=== PATIENT | female | born 1980 | race Caucasian/White ===

== ENCOUNTER 2017-08-31 11:23 | Emergency (ER) | payer OTHER ==
[~2017-08-31] VITALS: Ht 165.1 cm; Wt 68.2 kg
[~2017-08-31 11:23] MED LIST: FLEXERIL10 MG PO; LORTAB 5/500 501 TAB PO; NO HOME MEDICATIONS; PERCOCET 325 MG1 TA2 PO; ZOFRAN ODT4 MG PO
[2017-08-31 11:47] VITALS: TEMP 100.2
[2017-08-31 13:16] LABS: COLLECTION METHOD CLEAN CATCH
[2017-08-31 13:21] LABS: HEMOGLOBIN 12.5 g/dl (12.5-16.0); MEAN CELL VOLUME 101 fl (80.0-100.0); MEAN CORPUSCULAR HEMOGLOBIN 35 pg (27.0-31.0); MEAN CORPUSCULAR HGB CONC 34 g/dl (33.0-37.0); MEAN PLATELET VOLUME 10.2 fl (7.4-10.4); PLATELET COUNT 273 K/mm3 (130-400); RED BLOOD COUNT 3.61 M/mm3 (4.10-5.30); WHITE BLOOD COUNT 16.2 K/mm3 (4.8-10.8)
[2017-08-31 13:22] LABS: ADD PATHOLOGY DIFF REVIEW NO; HEMATOCRIT 36.5 % (37.0-47.0)
[2017-08-31 13:24] LABS: MUCOUS Present /lpf; PH 6 (5-8); SQUAMOUS EPITHELIAL 0-2 /hpf; URINE APPEARANCE Hazy; URINE BACTERIA Rare /hpf; URINE BILIRUBIN Negative (NEGATIVE); URINE BLOOD 2+ (NEGATIVE); URINE COLOR Yellow; URINE GLUCOSE Negative (NEGATIVE); URINE KETONE Negative (NEGATIVE); URINE LEUKOCYTE ESTERASE 3+ (NEGATIVE); URINE PROTEIN(semi-quant) Negative (NEGATIVE); URINE RBC 0-2 /hpf; URINE UROBILINOGEN Negative (NEGATIVE)
[2017-08-31 13:27] LABS: URINE WBC >50 /hpf
[2017-08-31 13:31] LABS: ADJUSTED CALCIUM 8.7 mg/dL (8.4-10.2); ALBUMIN 5.1 gm/dL (3.5-5.0); BILIRUBIN,TOTAL 0.9 mg/dL (0.0-1.0); CALCIUM 9.6 mg/dL (8.4-10.2); CREATININE, serum 0.95 mg/dL (0.52-1.25); POTASSIUM 3.7 mmol/L (3.4-5.0); TOTAL PROTEIN 8.7 gm/dL (6.4-8.2)
[2017-08-31 13:43] LABS: C-REACTIVE PROTEIN 19.9 mg/dL (0.0-0.9)
[2017-08-31 13:48] LABS: BAND 40 % (0-10); EOSINOPHIL 1 % (0-4); LYMPHOCYTE 8 % (20.0-51.0); NEUTROPHILS 44 % (42.0-75.2); PLATELET ESTIMATE NORMAL (NORMAL); TOTAL CELLS COUNTED 100
[2017-08-31] MEDS ORDERED: CIPRO 500MG TA500 MG PO (16:14)
[2017-08-31 16:30] VITALS: BP 112/81; PULSE 81
[2017-09-01] MEDS ORDERED: NORCO 325 MG-51 TAB PO (17:16)
== END 2017-08-31 16:32 | disposition home or self-care (01) ==
LOC: COL.ER 11:23
PROVIDERS: Nurse Practitioner Primary Care
DX: N12 Tubulo-interstitial nephritis, not specified as acute or chronic (principal); F12.10 Cannabis abuse, uncomplicated
CPT/HCPCS: J1170; J2405; J7030

== ENCOUNTER 2017-09-01 13:27 | Emergency (ER) | payer OTHER ==
[~2017-09-01] VITALS: Ht 165.1 cm; Wt 68.2 kg
[~2017-09-01 13:27] MED LIST changes: +CIPRO 500MG TA500 MG PO
[2017-09-01 15:03] LABS: BASO % 0.3 % (0.0-2.0); EOS % 0.1 % (0-4.0); GRAN # 8.5 (1.4-6.5); GRAN % 82.1 % (42.2-75.2); LYMPH # 0.6 (1.2-3.4); LYMPH % 5.6 % (20.0-51.0); MEAN CELL VOLUME 98 fl (80.0-100.0); MEAN CORPUSCULAR HGB CONC 35 g/dl (33.0-37.0); MEAN PLATELET VOLUME 10.4 fl (7.4-10.4); MONO # 1.2 (0.1-0.6); MONO % 11.4 % (1.7-9.3); PLATELET COUNT 246 K/mm3 (130-400); RED BLOOD COUNT 3.11 M/mm3 (4.10-5.30); WHITE BLOOD COUNT 10.3 K/mm3 (4.8-10.8)
[2017-09-01 15:04] LABS: HEMATOCRIT 30.4 % (37.0-47.0); HEMOGLOBIN 10.5 g/dl (12.5-16.0); MEAN CORPUSCULAR HEMOGLOBIN 34 pg (27.0-31.0)
[2017-09-01 15:06] LABS: ALBUMIN 4.1 gm/dL (3.5-5.0); BILIRUBIN,TOTAL 0.6 mg/dL (0.0-1.0); CALCIUM 9.1 mg/dL (8.4-10.2); CREATININE, serum 1.03 mg/dL (0.52-1.25); POTASSIUM 3.5 mmol/L (3.4-5.0); TOTAL PROTEIN 7.5 gm/dL (6.4-8.2)
[2017-09-01 15:19] LABS: INFLUENZA A NEGATIVE; INFLUENZA B NEGATIVE
[2017-09-01 16:19] LABS: COLLECTION METHOD CLEAN CATCH
[2017-09-01 16:28] LABS: PH 6 (5-8); SQUAMOUS EPITHELIAL 0-2 /hpf; URINE APPEARANCE Clear; URINE BACTERIA Rare /hpf; URINE BILIRUBIN Negative (NEGATIVE); URINE BLOOD 2+ (NEGATIVE); URINE COLOR Straw; URINE GLUCOSE Negative (NEGATIVE); URINE KETONE Negative (NEGATIVE); URINE LEUKOCYTE ESTERASE Negative (NEGATIVE); URINE PROTEIN(semi-quant) Negative (NEGATIVE); URINE RBC 0-2 /hpf; URINE UROBILINOGEN Negative (NEGATIVE); URINE WBC 0-2 /hpf
[2017-09-01] MEDS ORDERED: NORCO 325 MG-51 TAB PO (17:16)
[2017-09-02 16:45] VITALS: BP 110/52; PULSE 66; TEMP 97
== END 2017-09-01 17:33 | disposition home or self-care (01) ==
LOC: COL.ER 13:27
PROVIDERS: Emergency Medicine
DX: N10 Acute pyelonephritis (principal)
CPT/HCPCS: J0696; J1170; J1885; J2405; J7030; Q9967

== ENCOUNTER 2018-07-27 06:40 | Emergency (ER) | payer OTHER ==
[~2018-07-27] VITALS: Ht 165.1 cm; Wt 72.7 kg
[~2018-07-27 06:40] MED LIST changes: +NORCO 325 MG-51 TAB PO; +PREDNISONE20 MG PO
[2018-07-27 06:45] VITALS: TEMP 97.8
[2018-07-27 07:23] LABS: BASO % 0.3 % (0.0-2.0); GRAN # 10.2 (1.4-6.5); GRAN % 89.8 % (42.2-75.2); HEMATOCRIT 38.2 % (37.0-47.0); HEMOGLOBIN 12.9 g/dl (12.5-16.0); LYMPH # 0.7 (1.2-3.4); LYMPH % 6.5 % (20.0-51.0); MEAN CELL VOLUME 100 fl (80.0-100.0); MEAN CORPUSCULAR HEMOGLOBIN 34 pg (27.0-31.0); MEAN CORPUSCULAR HGB CONC 34 g/dl (33.0-37.0); MEAN PLATELET VOLUME 10.3 fl (7.4-10.4); MONO # 0.3 (0.1-0.6); PLATELET COUNT 283 K/mm3 (130-400); RED BLOOD COUNT 3.83 M/mm3 (4.10-5.30); REDCELL DISTRIBUTION WIDTH-CV 12.1 % (11.5-14.5)
[2018-07-27 07:36] LABS: ALBUMIN 4.9 gm/dL (3.5-5.0); BILIRUBIN,TOTAL 0.9 mg/dL (0.0-1.0); CALCIUM 10.3 mg/dL (8.4-10.2); CREATININE, serum 0.71 mg/dL (0.52-1.25); POTASSIUM 4.7 mmol/L (3.4-5.0); TOTAL PROTEIN 8.1 gm/dL (6.4-8.2)
[2018-07-27] MEDS ORDERED: PHENERGAN 25 TA25 MG PO (07:53)
[2018-07-27 08:02] LABS: COLLECTION METHOD CLEAN CATCH
[2018-07-27 08:14] LABS: MUCOUS Present /lpf; PH 5 (5-8); SQUAMOUS EPITHELIAL 0-2 /hpf; URINE APPEARANCE Clear; URINE BACTERIA Rare /hpf; URINE BILIRUBIN Negative (NEGATIVE); URINE BLOOD Negative (NEGATIVE); URINE COLOR Yellow; URINE GLUCOSE Negative (NEGATIVE); URINE KETONE 2+ (NEGATIVE); URINE LEUKOCYTE ESTERASE Negative (NEGATIVE); URINE NITRATE Negative (NEGATIVE); URINE PROTEIN(semi-quant) 2+ (NEGATIVE); URINE RBC 0-2 /hpf; URINE UROBILINOGEN Negative (NEGATIVE)
[2018-07-27 09:05] VITALS: BP 133/70; PULSE 62
== END 2018-07-27 09:07 | disposition home or self-care (01) ==
LOC: COL.ER 06:40
PROVIDERS: Emergency Medicine
DX: R11.10 Vomiting, unspecified (principal); R19.7 Diarrhea, unspecified
CPT/HCPCS: J0780; J1200; J2405; J7030

== ENCOUNTER 2018-08-01 04:27 | Emergency (ER) | payer OTHER ==
[~2018-08-01] VITALS: Ht 167.6 cm; Wt 72.7 kg
[~2018-08-01 04:27] MED LIST changes: +PHENERGAN 25 TA25 MG PO
[2018-08-01 04:34] VITALS: TEMP 98.2
[2018-08-01 04:54] LABS: BASO # 0.1 (0.0-0.2); BASO % 0.7 % (0.0-2.0); EOS % 0.5 % (0-4.0); GRAN # 6.1 (1.4-6.5); GRAN % 70.5 % (42.2-75.2); HEMATOCRIT 38.8 % (37.0-47.0); HEMOGLOBIN 13.2 g/dl (12.5-16.0); LYMPH # 1.8 (1.2-3.4); LYMPH % 21.3 % (20.0-51.0); MEAN CELL VOLUME 100 fl (80.0-100.0); MEAN CORPUSCULAR HEMOGLOBIN 34 pg (27.0-31.0); MEAN CORPUSCULAR HGB CONC 34 g/dl (33.0-37.0); MEAN PLATELET VOLUME 10.4 fl (7.4-10.4); MONO # 0.6 (0.1-0.6); MONO % 6.7 % (1.7-9.3); PLATELET COUNT 246 K/mm3 (130-400); RED BLOOD COUNT 3.89 M/mm3 (4.10-5.30); REDCELL DISTRIBUTION WIDTH-CV 11.9 % (11.5-14.5)
[2018-08-01 05:05] LABS: ALANINE AMINOTRANSFERASE 49 U/L (9-52); ALBUMIN 4.7 gm/dL (3.5-5.0); ALCOHOL(ethanol),MEDICAL 54 mg/dL; ALKALINE PHOSPHATASE 45 U/L (50-136); ANION GAP 14 mmol/L (7-16); AST,SGOT 30 U/L (15-37); BILIRUBIN,TOTAL 0.3 mg/dL (0.0-1.0); BLOOD UREA NITROGEN 9 mg/dL (7-17); CALCIUM 9.2 mg/dL (8.4-10.2); CARBON DIOXIDE 21 mmol/L (22-30); CHLORIDE 105 mmol/L (98-107); CREATININE, serum 0.85 mg/dL (0.52-1.25); GLUCOSE 108 mg/dL (74-106); LIPASE 137 U/L (23-300); MAGNESIUM 1.7 mg/dL (1.6-2.3); POTASSIUM 3.7 mmol/L (3.4-5.0); SODIUM 140 mmol/L (137-145); TOTAL PROTEIN 7.5 gm/dL (6.4-8.2)
[2018-08-01 05:25] LABS: TROPONIN-I < 0.012 ng/mL (0.000-0.034)
[2018-08-01 06:42] LABS: COLLECTION METHOD CLEAN CATCH
[2018-08-01 06:51] LABS: MUCOUS Present /lpf; PH 7 (5-8); SQUAMOUS EPITHELIAL 0-2 /hpf; URINE APPEARANCE Clear; URINE BACTERIA None Seen /hpf; URINE BILIRUBIN Negative (NEGATIVE); URINE BLOOD Negative (NEGATIVE); URINE COLOR Straw; URINE GLUCOSE Negative (NEGATIVE); URINE KETONE 1+ (NEGATIVE); URINE LEUKOCYTE ESTERASE Negative (NEGATIVE); URINE NITRATE Negative (NEGATIVE); URINE PROTEIN(semi-quant) Negative (NEGATIVE); URINE RBC 0-2 /hpf; URINE UROBILINOGEN Negative (NEGATIVE)
[2018-08-01] MEDS ORDERED: PROTONIX 40MG T40 MG PO (07:11)
[2018-08-01] MEDS ORDERED: ZOFRAN ODT4 MG PO (07:11)
[2018-08-01 08:50] VITALS: BP 138/88; PULSE 56
== END 2018-08-01 09:29 | disposition home or self-care (01) ==
LOC: COL.ER 04:27
PROVIDERS: Emergency Medicine
DX: R11.10 Vomiting, unspecified (principal); R10.9 Unspecified abdominal pain; F12.90 Cannabis use, unspecified, uncomplicated
CPT/HCPCS: J1200; J2060; J2405; J2550; J3010; J7030; Q9967

== ENCOUNTER 2019-02-21 22:32 | Emergency (ER) | payer OTHER ==
[~2019-02-21] VITALS: Ht 165.1 cm; Wt 68.2 kg
[~2019-02-21 22:32] MED LIST changes: +PROTONIX 40MG T40 MG PO
[2019-02-21 22:35] VITALS: BP 178/98; TEMP 98.1
[2019-02-21 22:52] LABS: BASO % 0.2 % (0.0-2.0); EOS % 0.1 % (0-4.0); GRAN # 14.8 (1.4-6.5); GRAN % 80.6 % (42.2-75.2); HEMATOCRIT 42.9 % (37.0-47.0); HEMOGLOBIN 14.7 g/dl (12.5-16.0); LYMPH # 2.1 (1.2-3.4); LYMPH % 11.5 % (20.0-51.0); MEAN CELL VOLUME 99 fl (80.0-100.0); MEAN CORPUSCULAR HEMOGLOBIN 34 pg (27.0-31.0); MEAN CORPUSCULAR HGB CONC 34 g/dl (33.0-37.0); MEAN PLATELET VOLUME 10.2 fl (7.4-10.4); MONO # 1.3 (0.1-0.6); MONO % 7.1 % (1.7-9.3); PLATELET COUNT 352 K/mm3 (130-400); RED BLOOD COUNT 4.35 M/mm3 (4.10-5.30); REDCELL DISTRIBUTION WIDTH-CV 12.7 % (11.5-14.5)
[2019-02-21 23:03] LABS: ALANINE AMINOTRANSFERASE 36 U/L (9-52); ALBUMIN 5.5 gm/dL (3.5-5.0); ALCOHOL(ethanol),MEDICAL < 10 mg/dL; ALKALINE PHOSPHATASE 72 U/L (50-136); ANION GAP 23 mmol/L (7-16); AST,SGOT 70 U/L (15-37); BILIRUBIN,TOTAL 1.2 mg/dL (0.0-1.0); BLOOD UREA NITROGEN 17 mg/dL (7-17); CALCIUM 10.6 mg/dL (8.4-10.2); CARBON DIOXIDE 24 mmol/L (22-30); CHLORIDE 90 mmol/L (98-107); CREATININE, serum 1.05 (0.52-1.25); GLUCOSE 123 mg/dL (74-106); LIPASE 61 U/L (23-300); POTASSIUM 4.3 mmol/L (3.4-5.0); SODIUM 137 mmol/L (137-145); TOTAL PROTEIN 9.6 gm/dL (6.4-8.2)
[2019-02-21] MEDS ORDERED: ZOFRAN ODT4 MG PO (23:22)
[2019-02-21] MEDS ORDERED: NEXIUM 40MG40 MG PO (23:22)
[2019-02-22 01:05] VITALS: PULSE 79
[2019-02-23] MEDS ORDERED: PROMETHAZINE12.5 M5 PO (16:02)
[2019-02-23] MEDS ORDERED: PRIL40 PO (16:02)
[2019-02-23] MEDS ORDERED: ATIVAN 1MG T1 MG/TAB PO (16:21)
== END 2019-02-22 01:05 | disposition home or self-care (01) ==
LOC: COL.ER 22:32
PROVIDERS: Emergency Medicine
DX: R11.2 Nausea with vomiting, unspecified (principal); R10.13 Epigastric pain; F17.210 Nicotine dependence, cigarettes, uncomplicated; F12.90 Cannabis use, unspecified, uncomplicated; R10.9 Unspecified abdominal pain
CPT/HCPCS: C9113; J0780; J3010; J7030; Q9967